=== PATIENT | female | born 1990 | race Two or more races ===

== ENCOUNTER 2019-02-07 09:37 | Outpatient (CLI) | payer OTHER | END 2019-02-07 11:00 | disposition home or self-care (01) | LOC: PRENATAL 09:37 | DX: O35.3XX0 Maternal care for (suspected) damage to fetus from viral disease in mother, not applicable or unspecified (principal); O34.211 Maternal care for low transverse scar from previous cesarean delivery ==

== ENCOUNTER → 2019-04-03 | Outpatient (CLI) | payer OTHER | END | disposition home or self-care (01) | LOC: PRENATAL 14:33 | DX: O26.842 Uterine size-date discrepancy, second trimester (principal); O34.211 Maternal care for low transverse scar from previous cesarean delivery; Z34.02 Encounter for supervision of normal first pregnancy, second trimester ==